=== PATIENT | female | born 1975 | race African-American/Black ===

== ENCOUNTER 2017-12-24 08:00 | Emergency (ER) | payer OTHER ==
[~2017-12-24] VITALS: Ht 157.5 cm
[2017-12-24] MEDS ORDERED: PERCOCET 5/31 TABLET PO (09:49)
[2017-12-24] MEDS ORDERED: FLEXERIL10 MG PO (09:49)
[2017-12-24 10:03] VITALS: BP 132/76
== END 2017-12-24 10:22 | disposition home or self-care (01) ==
LOC: TRA 08:00 → EDBD 08:00 → EME 08:00 → TRA 10:22
DX: S30.0XXA Contusion of lower back and pelvis, initial encounter (principal); S20.229A Contusion of unspecified back wall of thorax, initial encounter; V47.6XXA Car passenger injured in collision with fixed or stationary object in traffic accident, initial encounter; Z86.711 Personal history of pulmonary embolism; S00.31XA Abrasion of nose, initial encounter
CPT/HCPCS: 71045; 72040; 72070; 72100; 99281; 99284